=== PATIENT | male | born 2005 ===

== ENCOUNTER 2023-10-05 18:05 | Emergency (ER) | payer OTHER ==
[2023-10-05] MEDS ORDERED: HYDROmorphone 1 MG/ML 1 ML SYRINGE ONE ×2 (18:18→18:49)
[2023-10-05] MEDS ORDERED: SODIUM CHLORIDE 0.9% 1,000 ML BAG ONE (18:30)
[2023-10-05] MEDS ORDERED: ONDANSETRON 4 MG/2 ML VIAL ONE (18:33)
[2023-10-05] MEDS ORDERED: KETAMINE 50 MG/ML 10 ML VIAL ONE (18:33)
[2023-10-05] MEDS ORDERED: PROPOFOL 10 MG/ML 20 ML VIAL IV ONE (18:34)
[2023-10-05] MEDS ORDERED: LORazepam 2 MG/ML INJ ONE (18:50)
[2023-10-05] MEDS ORDERED: ACETAMINOPHEN IV (For NPO) 1,000 MG/100 ML VIAL ONE (19:00)
[2023-10-05] MEDS ORDERED: KETOROLAC 15 MG/ML 1 ML VIAL ONE (20:10)
[2023-10-05] MEDS ORDERED: tiZANidine 4 MG TAB ONE (21:00)
--- NOTE | 2023-11-15 09:14 | XR ---
EXAMINATION TYPE: XR tibia fibula LT DATE OF EXAM: 10/05/2023 INDICATION: Patient age:Male; 18 years old; Reason for study: FALL WITH OBVIOUS DEFORMITY; [facility]. COMPARISON: None TECHNIQUE: The left tibia/fibula was examined in AP and lateral projections. FINDINGS: Acute minimally comminuted moderately displaced transverse oriented fracture through the di stal femoral diaphyseal shaft. There is posterior medial apex angulation. Stranding soft tissue swell ing identified. There is dislocation of the talus laterally. Acute minimally comminuted fracture of t he medial malleolus with lateral displacement beneath the tibial plafond. Visualized knee joint appea rs intact. IMPRESSION: 1. Acute moderately displaced distal fibular diaphyseal shaft fracture. 2. Ankle dislocation with displaced medial malleolus fracture. [facility], , 11/15/2023 9:12 AM
--- NOTE | 2023-11-15 09:17 | XR ---
EXAMINATION TYPE: XR tibia fibula LT DATE OF EXAM: 10/05/2023 INDICATION: Patient age:Male; 18 years old; Reason for study: POST REDUCTION; [facility]. COMPARISON: Left tibia/fibular radiograph performed earlier today. TECHNIQUE: The left tibia/fibula was examined in AP and lateral projections. FINDINGS: Redemonstration of comminuted distal fibula. Transverse oriented fracture of the diaphyseal shaft. There is improved alignment with continued medial displacement of the distal fracture fragmen t measuring approximately 1.2 cm. Interval reduction of previously seen ankle joint dislocation with improved alignment of the medial malleolus fracture. Surrounding soft tissue swelling identified. Kne e joint appears unremarkable. IMPRESSION: Improved alignment of previously seen dislocated ankle and medial malleolar fracture. Improved alignm ent with still medial displacement of distal fibular shaft fracture. [facility], , 11/15/2023 9:14 AM
== END 2023-10-05 21:05 ==
LOC: EC 18:05
CPT/HCPCS: 27762; 80053; 85025; 85610; 85730; 96374; 96375; 99284